=== PATIENT | male | born 1990 | race Caucasian/White ===

== ENCOUNTER 2018-01-13 18:13 | Emergency (ER) | payer OTHER ==
[~2018-01-13] VITALS: Ht 177.8 cm; Wt 86.2 kg
[2018-01-13 18:38] LABS: HEMATOCRIT 40.2 % (42.0-52.0); HEMOGLOBIN 13.8 gm/dL (14.0-18.0); MCH 28.3 pg (26.0-34.0); MCHC 34.3 g/dL (28.0-37.0); MCV 82.7 fL (80.0-100.0); MPV 8.6 fl. (7.2-11.1); NUCLEATED RBCS 0 /100WBC; PLATELET COUNT* 135 thou/uL (150-400); RBC 4.87 mil/uL (4.50-6.00); WBC 7.2 thou/uL (4.0-11.0)
[2018-01-13 18:51] LABS: CALCIUM 8.6 mg/dL (8.5-10.1); CREATININE 0.8 mg/dL (0.6-1.3); POTASSIUM 3.5 mmol/L (3.5-5.1)
[2018-01-13 18:56] LABS: ALBUMIN 2.8 g/dL (3.4-5.0); TOTAL BILIRUBIN 0.6 mg/dL (<0.1-1.0); TOTAL PROTEIN 7.1 g/dL (6.4-8.2)
[2018-01-13 19:00] LABS: ABSOLUTE LYMPHOCYTES 1.9 thou/uL (0.8-5.3); ABSOLUTE MONOCYTES 0.4 thou/uL (0.0-1.2); ABSOLUTE NEUTROPHILS 4.9 thou/uL (1.6-8.1); ATYPICAL LYMPHS 16 %
[2018-01-13 19:01] LABS: PLATELET ESTIMATE ADEQUATE
[2018-01-13 20:41] LABS: URINE BILIRUBIN NEGATIVE (Negative); URINE BLOOD NEGATIVE (Negative); URINE CLARITY CLEAR; URINE COLOR YELLOW; URINE GLUCOSE-RANDOM NEGATIVE (Negative); URINE KETONES 2+ (Negative); URINE LEUKOCYTES-REFLEX NEGATIVE (Negative); URINE NITRITE-REFLEX NEGATIVE (Negative); URINE PROTEIN TRACE (Negative); URINE SPECIFIC GRAVITY 1.015 (1.005-1.030)
[2018-01-13 20:49] LABS: AMP/METHAMP Negative (Negative); BARBITURATES Negative (Negative); BENZODIAZEPINES Negative (Negative); COCAINE Negative (Negative); METHADONE Negative (Negative); OPIATES Negative (Negative); PCP Negative (Negative); THC Negative (Negative)
[2018-01-13 20:58] VITALS: BP 107/52
--- NOTE | 2018-01-16 11:07 | EKG ---
[place] [address] ELECTROCARDIOGRAM REPORT Name: KARAN BIRMINGHAM JR Room: [facility]#: [id number] Admission: 01/13/18 Attend Phys: Discharge: 01/13/18 Date of : [birth year] Report #: [id number] THIS REPORT FOR: //name// [facility] ED Test Date: 2018-01-13 Test Time: 19:01:52 Pat Name: KARAN BIRMINGHAM Department: Room: Gender: M Mail Handler Sorter: CAROL : 1990 Requested By: Bina Mathias Order Number: [id number] MD: Shamar Gonzalez Measurements Intervals [place] Rate: 84 P: 56 CO: 119 QRS: -22 QRSD: 81 T: 33 QT: 333 QTc: 394 Interpretive Statements Sinus rhythm Borderline short CO interval Borderline left axis deviation Electronically Signed On 01-16-2018 11:07:36 CDT by Shamar Gonzalez [email or web address] <ELECTRONICALLY SIGNED> By: Shamar Gonzalez MD, [facility] 01/16/18 1107 1901 1901 Shamar Gonzalez MD, FACC /EPI
--- NOTE | 2018-01-16 11:07 | EKG ---
[place] [address] ELECTROCARDIOGRAM REPORT Name: KARAN BIRMINGHAM JR Room: [facility]#: [id number] Admission: 01/13/18 Attend Phys: Discharge: 01/13/18 Date of : [birth year] Report #: [id number] THIS REPORT FOR: //name// [facility] ED Test Date: 2018-01-13 Test Time: 19:00:54 Pat Name: KARAN BIRMINGHAM Department: Room: Gender: M Echo Tech: CAROL : 1990 Requested By: Bina Mathias Order Number: [id number] Xander MD: Shamar Gonzalez Measurements Intervals [place] Rate: 81 P: 52 NV: 119 QRS: -24 QRSD: 81 T: 31 QT: 330 QTc: 383 Interpretive Statements Incomplete analysis due to missing data in precordial lead(s) Sinus rhythm Borderline short NV interval Borderline left axis deviation Missing lead(s): V6 No previous ECG available for comparison Electronically Signed On 01-16-2018 11:07:16 CDT by Shamar Gonzalez [email or web address] <ELECTRONICALLY SIGNED> By: Shamar Gonzalez MD, [facility] 01/16/18 1109 1900 1900 Shamar Gonzalez MD, [facility] /EPI
== END 2018-01-13 21:01 | disposition home or self-care (01) ==
LOC: M.ERS 18:13
PROVIDERS: Physician Assistant
DX: E86.0 Dehydration (principal); F17.200 Nicotine dependence, unspecified, uncomplicated; Z86.19 Personal history of other infectious and parasitic diseases

== ENCOUNTER 2018-01-15 20:00 | Emergency (ER) | payer OTHER ==
[~2018-01-15] VITALS: Ht 177.8 cm; Wt 86.2 kg
[2018-01-15] MEDS ORDERED: IBUPROFEN 200200 M1 (20:14)
[2018-01-15] MEDS ORDERED: BACTRIM DS TAB1 EACH (20:14)
[2018-01-15 20:51] LABS: ABSOLUTE BASOPHILS 0.2 thou/uL (0.0-0.2); ABSOLUTE LYMPHOCYTES 2.5 thou/uL (0.8-5.3); ABSOLUTE NEUTROPHILS 3.5 thou/uL (1.6-8.1); BASOPHILS 3.4 %; EOSINOPHILS 0.2 %; HEMATOCRIT 39.1 % (42.0-52.0); HEMOGLOBIN 13.4 gm/dL (14.0-18.0); LYMPHOCYTES 34.5 %; MCHC 34.1 g/dL (28.0-37.0); MCV 81.9 fL (80.0-100.0); MONOCYTES 13.4 %; MPV 9.2 fl. (7.2-11.1); NUCLEATED RBCS 0 /100WBC; PLATELET COUNT* 90 thou/uL (150-400); POLYS 48.5 %; RBC 4.78 mil/uL (4.50-6.00); RDW-CV 14.5 % (10.5-14.5); WBC 7.1 thou/uL (4.0-11.0)
[2018-01-15 20:55] LABS: CALCIUM 8.7 mg/dL (8.5-10.1); POTASSIUM 3.7 mmol/L (3.5-5.1)
[2018-01-15 21:00] LABS: ALBUMIN 2.6 g/dL (3.4-5.0); TOTAL BILIRUBIN 0.6 mg/dL (<0.1-1.0)
[2018-01-15 22:10] LABS: URINE BILIRUBIN NEGATIVE (Negative); URINE BLOOD NEGATIVE (Negative); URINE CLARITY CLEAR; URINE COLOR YELLOW; URINE GLUCOSE-RANDOM NEGATIVE (Negative); URINE KETONES TRACE (Negative); URINE LEUKOCYTES-REFLEX NEGATIVE (Negative); URINE NITRITE-REFLEX NEGATIVE (Negative); URINE PROTEIN NEGATIVE (Negative)
[2018-01-15 22:18] LABS: AMP/METHAMP Negative (Negative); BARBITURATES Negative (Negative); BENZODIAZEPINES Negative (Negative); COCAINE Negative (Negative); METHADONE Negative (Negative); OPIATES Negative (Negative); PCP Negative (Negative); THC Negative (Negative)
[2018-01-15] MEDS ORDERED: ZITHROMAX TRI-500 MG PO (22:42)
[2018-01-15 23:15] VITALS: BP 96/54
== END 2018-01-15 23:18 | disposition home or self-care (01) ==
LOC: M.ERS 20:00
PROVIDERS: Nurse Practitioner Family
DX: R50.9 Fever, unspecified (principal); R05 Cough; F17.200 Nicotine dependence, unspecified, uncomplicated; Z86.19 Personal history of other infectious and parasitic diseases